=== PATIENT | male | born 2000 | race Caucasian/White ===

== ENCOUNTER 2021-04-15 08:00 | Outpatient (CLI) | payer MEDICAID, OTHER ==
--- NOTE | 2021-04-15 16:25 | XRAY Report ---
PROCEDURE: Finger(s) LT INDICATIONS: CRUSHING INJURY LEFT MIDDLE FINGER TECHNIQUE: AP hand, 2 views of the third finger(s) acquired. COMPARISON: None. FINDINGS: Bones: No fractures or dislocations. No suspicious bony lesions. Soft tissues: No suspicious soft tissue calcifications. IMPRESSION: No definitive osseous injuries. If clinical symptoms persist, a follow-up examination in 7-10 days ca n be obtained for follow up. Reviewed by: Philip Ardon MD on 04/15/2021 4:23 PM [facility] Approved by: Philip Ardon MD on 04/15/2021 4:23 PM [facility] Station ID: [id number]
== END 2021-04-15 23:59 | disposition home or self-care (01) ==
LOC: DI.S 08:00
PROVIDERS: ATTEND Physician Assistant Medical
DX: S67.193A Crushing injury of left middle finger, initial encounter (principal)